=== PATIENT | female | born 1970 | race Caucasian/White ===

== ENCOUNTER 2019-06-03 08:18 | Emergency (ER) | payer OTHER ==
[~2019-06-03] VITALS: Ht 165.1 cm; Wt 57.5 kg
[2019-06-03] MEDS ORDERED: SODIUM CHLORIDE 0.9% 1,000ML IVBOLUS ONE ×2 (09:00→11:00)
[2019-06-03] MEDS ORDERED: FAMOTIDINE 20 MG/2 ML IV ONE (09:00)
[2019-06-03] MEDS ORDERED: ONDANSETRON 2MG/ML, 2ML IVPush ONE (09:00)
[2019-06-03] MEDS ORDERED: LORazepam 2 MG/ML, 1ML IVPush ONE (09:00)
[2019-06-03 09:19] LABS: BASOPHILS # (AUTO) 0.03 x10^3/uL (0-0.1); BASOPHILS % (AUTO) 0 % (0-1); EOSINOPHILS % (AUTO) 0 % (1-7); LYMPHOCYTES # (AUTO) 1.74 x10^3/uL (1-3.4); LYMPHOCYTES % (AUTO) 17 % (22-44); MD NO; MEAN CORPUSCULAR HEMOGLOBIN 33.4 pg (27.0-34.8); MEAN CORPUSCULAR HGB CONC 34.4 g/dL (32.4-35.8); MEAN CORPUSCULAR VOLUME 97.1 fL (80-100); MEAN PLATELET VOLUME 7.7 fL (7.4-10.4); MONOCYTES % (AUTO) 8 % (2-9); NEUTROPHILS # (AUTO) 7.57 x10^3/uL (1.8-6.8); NEUTROPHILS % (AUTO) 75 % (42-75); PLATELET COUNT 325 x10^3/uL (130-400); RED BLOOD COUNT 5.01 x10^6/uL (3.82-5.3)
--- NOTE | 2019-06-03 09:21 | NUR ---
PT TO ED C/O TREMORS X N/V X 5 DAYS. PT STATES SHE NORMALLY DRINKS 5-6 GLASSES OF WINE Q DAY. HAS NOT HAD A DRINK IN ~6 DAYS. PT HAS TREMORS. HX OF SZ, DENIES ANY CHANGE IN RX MANAS. ON MONITOR. FAMILY AT . PT TACHYPENIC, C/O R HAND CRAMPING, ENCOURAGES TO FOCUS ON BREATHING. PIV ESTB, LABS DRAWN & SENT. MEDS PER SEP. WILL CTM. CALL LIGHT INREACH.
[2019-06-03] MEDS ORDERED: LORazepam 2 MG/ML, 1ML ONE (09:25)
[2019-06-03] MEDS ORDERED: ONDANSETRON 2MG/ML, 2ML ONE (09:26)
[2019-06-03] MEDS ORDERED: FAMOTIDINE 20 MG/2 ML ONE (09:26)
[2019-06-03 09:30] LABS: ALANINE AMINOTRANSFERASE 33 U/L (12-78); ALBUMIN 4.4 g/dL (3.4-5.0); ANION GAP 19 mmol/L (5-15); CALCIUM 8.8 mg/dL (8.5-10.1); CHLORIDE 90 mmol/L (98-107)
[2019-06-03] MEDS ORDERED: THIAMINE 100 MG in SODIUM CHLORIDE 0.9% 50 ML IVPB ONE (09:30)
[2019-06-03 09:35] LABS: ALKALINE PHOSPHATASE 93 U/L (45-117); BILIRUBIN,TOTAL 1.3 mg/dL (0.2-1.0); CREATININE 1.09 mg/dL (0.55-1.02); TOTAL PROTEIN 8.2 g/dL (6.4-8.2)
--- NOTE | 2019-06-03 10:07 | NUR ---
TREMORS SUBSIDED. PT STATES SHE FEELS MUCH BETTER. FAMILY AT . WILL CTM.
[2019-06-03 10:39] LABS: PH, VENOUS 7.475 pH (7.320-7.420)
[2019-06-03 10:40] LABS: FIO2 ROOM AIR %
--- NOTE | 2019-06-03 11:03 | NUR ---
AMBULATORY TO RESTROOM C STEADY GAIT.
[2019-06-03 11:44] LABS: MICROSCOPIC AUTO
[2019-06-03 11:45] LABS: CULTURE INDICATED? YES
[2019-06-03] MEDS ORDERED: POTASSIUM CHLORIDE 20 MEQ TAB.ER.PRT ONE (12:17)
--- NOTE | 2019-06-03 12:20 | NUR ---
REPORT FROM DELIA VERONICA. PT SITTING IN BED TALKING WITH , WHO IS AT THE BEDSIDE. NAD NOTED AT THIS TIME. PO MEDS ADMINISTERED PER ORDERS. NO WOB NOTED. SIDE RAILS UP, CALL LIGHT IN REACH.
[2019-06-03] MEDS ORDERED: POTASSIUM CHLORIDE 20 MEQ TAB.ER.PRT PO ONE (12:30)
--- NOTE | 2019-06-03 12:55 | NUR ---
PLAN FOR COMPLETION OF IVF AND THEN DC. NAD NOTED AT THIS TIME. REMAINS AT BEDSIDE. SIDE RAIL UP, CALL LIGHT IN REACH.
[2019-06-03 13:06] VITALS: BP 121/76
--- NOTE | 2019-06-03 13:41 | NUR ---
IVF COMPLETED. NAD NOTED.
== END 2019-06-03 13:43 | disposition home or self-care (01) ==
LOC: ED 11:33
DX: E86.0 Dehydration (principal); F41.1 Generalized anxiety disorder; R06.4 Hyperventilation; R11.2 Nausea with vomiting, unspecified
CPT/HCPCS: 36415; 80053; 80156; 80307; 81001; 82803; 83690; 84703; 85025; 87077; 87086; 96365; 96366; 96375; 99283; J2060; J2405; J3411; J3490; J7030; 87186